=== PATIENT | female | born 1985 | race Caucasian/White ===

== ENCOUNTER 2017-11-19 14:42 | Emergency (ER) | payer OTHER ==
[2017-11-19 16:37] LABS: ADD UMIC YES; UR ASCORBIC ACID 40 mg/dL (NEGATIVE); UR BILIRUBIN (Dip) NEGATIVE (NEGATIVE); UR BLOOD (Dip) NEGATIVE (NEGATIVE); UR CLARITY SLIGHTLY CLOUDY (CLEAR); UR COLOR YELLOW (YELLOW); UR GLUCOSE (Dip) NEGATIVE (NEGATIVE); UR KETONES (Dip) NEGATIVE (NEGATIVE); UR LEUKOCYTE ESTERASE (Dip) TRACE Leu/ul (NEGATIVE); UR MUCUS FEW /HPF (NONE SEEN); UR NITRITE (Dip) NEGATIVE (NEGATIVE); UR RBC 2 /HPF (0-5); UR SPECIFIC GRAVITY (Dip) 1.026 (1.003-1.030); UR SQUAMOUS EPITHELIAL CELL MODERATE /HPF (FEW); UR TOTAL PROTEIN (Dip) NEGATIVE (NEGATIVE); UR UROBILINOGEN (Dip) NEGATIVE (NEGATIVE); UR WBC 2 /HPF (0-5)
== END 2017-11-19 17:30 | disposition home or self-care (01) ==
LOC: FTE 14:42
DX: O23.12 Infections of bladder in pregnancy, second trimester (principal); R10.2 Pelvic and perineal pain; Z3A.15 15 weeks gestation of pregnancy
CPT/HCPCS: 76805; 81001; 81025; 99284-25

== ENCOUNTER 2018-01-22 23:15 | Outpatient (CLI) | payer OTHER ==
[2018-01-23 01:01] LABS: ADD UMIC YES; UR ASCORBIC ACID NEGATIVE (NEGATIVE); UR BACTERIA FEW /HPF (NONE SEEN); UR BILIRUBIN (Dip) NEGATIVE (NEGATIVE); UR BLOOD (Dip) NEGATIVE (NEGATIVE); UR CLARITY SLIGHTLY CLOUDY (CLEAR); UR COLOR YELLOW (YELLOW); UR GLUCOSE (Dip) 1+ mg/dL (NEGATIVE); UR KETONES (Dip) 1+ mg/dL (NEGATIVE); UR LEUKOCYTE ESTERASE (Dip) NEGATIVE Leu/ul (NEGATIVE); UR MUCUS FEW /HPF (NONE SEEN); UR NITRITE (Dip) NEGATIVE (NEGATIVE); UR RBC 9 /HPF (0-5); UR SPECIFIC GRAVITY (Dip) 1.029 (1.003-1.030); UR SQUAMOUS EPITHELIAL CELL FEW /HPF (FEW); UR TOTAL PROTEIN (Dip) 1+ mg/dl (NEGATIVE); UR UROBILINOGEN (Dip) NEGATIVE (NEGATIVE); UR WBC 2 /HPF (0-5)
[2018-01-23 01:05] LABS: ADD MAN DIFF? NO
[2018-01-23 01:06] LABS: WHITE BLOOD COUNT 9.6 10^3/ul (4.8-10.8)
[2018-01-23 01:06] LABS: BASOPHILS % 0.2 % (0.0-2.0); EOSINOPHILS # 0.1 10^3/ul (0.0-0.5); EOSINOPHILS % 0.8 % (0.0-7.0); HEMATOCRIT 34.3 % (37.0-47.0); HEMOGLOBIN 11.8 g/dl (12.0-16.0); LYMPHOCYTES # 2.1 10^3/ul (0.8-2.9); LYMPHOCYTES % 21.6 % (15.0-51.0); MEAN CORPUSCULAR HEMOGLOBIN 33.8 pg (29.0-33.0); MEAN CORPUSCULAR HGB CONC 34.4 g/dl (32.0-37.0); MEAN CORPUSCULAR VOLUME 98.3 fl (82.0-101.0); MEAN PLATELET VOLUME 10.3 fl (7.4-10.4); MONOCYTE # 0.8 10^3/ul (0.3-0.9); MONOCYTES % 8.5 % (0.0-11.0); NEUTROPHIL # 6.4 10^3/ul (1.6-7.5); NEUTROPHILS % 66.7 % (39.0-77.0); PLATELET COUNT 210 10^3/UL (140-415); RED BLOOD COUNT 3.49 10^6/ul (4.20-5.40); RED CELL DISTRIBUTION WIDTH 14.3 % (11.5-14.5)
[2018-01-23 01:30] LABS: ALANINE AMINOTRANSFERASE 27 IU/L (13-69); ALBUMIN 3.2 g/dl (3.3-4.9); ALBUMIN/GLOBULIN RATIO 1.14; ALKALINE PHOSPHATASE 85 IU/L (42-121); ANION GAP 17 (8-16); ASPARTATE AMINO TRANSFERASE 20 IU/L (15-46); BILIRUBIN,INDIRECT 0.3 mg/dl (0-1.1); BILIRUBIN,TOTAL 0.3 mg/dl (0.2-1.3); BLOOD UREA NITROGEN 12 mg/dl (7-20); CARBON DIOXIDE 19 mmol/L (21-31); CHLORIDE 110 mmol/L (97-110); CREATININE 0.43 mg/dl (0.44-1.00); GLUCOSE 116 mg/dl (70-220); POTASSIUM 3.5 mmol/L (3.5-5.1); SODIUM 142 mmol/L (135-144)
== END 2018-01-23 03:40 | disposition home or self-care (01) ==
LOC: OBT 23:15 → L-D 23:20
DX: O26.892 Other specified pregnancy related conditions, second trimester (principal); R10.2 Pelvic and perineal pain; Z3A.26 26 weeks gestation of pregnancy
CPT/HCPCS: 76815; 76817; 80053; 81001; 85025; 87086

== ENCOUNTER 2018-04-01 22:37 | Outpatient (CLI) | payer OTHER ==
[2018-04-01 23:28] LABS: ADD UMIC YES; UR ASCORBIC ACID NEGATIVE (NEGATIVE); UR BILIRUBIN (Dip) NEGATIVE (NEGATIVE); UR BLOOD (Dip) NEGATIVE (NEGATIVE); UR CLARITY CLEAR (CLEAR); UR COLOR YELLOW (YELLOW); UR GLUCOSE (Dip) 2+ mg/dL (NEGATIVE); UR KETONES (Dip) TRACE mg/dL (NEGATIVE); UR LEUKOCYTE ESTERASE (Dip) TRACE Leu/ul (NEGATIVE); UR NITRITE (Dip) NEGATIVE (NEGATIVE); UR RBC 1 /HPF (0-5); UR SPECIFIC GRAVITY (Dip) 1.027 (1.003-1.030); UR SQUAMOUS EPITHELIAL CELL FEW /HPF (FEW); UR TOTAL PROTEIN (Dip) NEGATIVE (NEGATIVE); UR UROBILINOGEN (Dip) NEGATIVE (NEGATIVE); UR WBC 4 /HPF (0-5)
== END 2018-04-02 02:08 | disposition home or self-care (01) ==
LOC: OBT 22:37 → L-D 22:38
DX: O62.9 Abnormality of forces of labor, unspecified (principal); O24.414 Gestational diabetes mellitus in pregnancy, insulin controlled; Z3A.36 36 weeks gestation of pregnancy
CPT/HCPCS: 76815; 76818; 81001

== ENCOUNTER 2018-04-10 21:13 | Inpatient (IN) | payer OTHER ==
[2018-04-11 00:41] LABS: ADD UMIC YES; UR ASCORBIC ACID NEGATIVE (NEGATIVE); UR BACTERIA FEW /HPF (NONE SEEN); UR BILIRUBIN (Dip) NEGATIVE (NEGATIVE); UR BLOOD (Dip) NEGATIVE (NEGATIVE); UR CLARITY CLOUDY (CLEAR); UR COLOR YELLOW (YELLOW); UR GLUCOSE (Dip) 1+ mg/dL (NEGATIVE); UR KETONES (Dip) TRACE mg/dL (NEGATIVE); UR LEUKOCYTE ESTERASE (Dip) TRACE Leu/ul (NEGATIVE); UR MUCUS FEW /HPF (NONE SEEN); UR NITRITE (Dip) NEGATIVE (NEGATIVE); UR RBC 2 /HPF (0-5); UR SPECIFIC GRAVITY (Dip) 1.026 (1.003-1.030); UR SQUAMOUS EPITHELIAL CELL MODERATE /HPF (FEW); UR TOTAL PROTEIN (Dip) 1+ mg/dl (NEGATIVE); UR UROBILINOGEN (Dip) NEGATIVE (NEGATIVE); UR WBC 5 /HPF (0-5)
[2018-04-11] MEDS ORDERED: OXYTOCIN 30 UNITS/LR 500 ML IV ×3 (03:30→20:30)
[2018-04-11] MEDS ORDERED: DEXTROSE 50% 50 ML SYRINGE IV ×2 (03:30)
[2018-04-11] MEDS ORDERED: LIDOCAINE 1% (MPF) 30 ML INJ INJ (03:30)
[2018-04-11] MEDS ORDERED: HYDROCODONE/APAP (5/325) TAB PO (03:30)
[2018-04-11] MEDS ORDERED: MISOPROSTOL 200 MCG TAB PR ×2 (03:30→20:30)
[2018-04-11] MEDS ORDERED: GLUCOSE GEL 15 GRAM TUBE PO ×2 (03:30)
[2018-04-11] MEDS ORDERED: CARBOPROST 250 MCG INJ IM ×2 (03:30→20:30)
[2018-04-11] MEDS ORDERED: METHYLERGONOVINE 0.2 MG INJ IM ×2 (03:30→20:30)
[2018-04-11] MEDS ORDERED: IBUPROFEN 600 MG TAB PO (03:30)
[2018-04-11] MEDS ORDERED: GLUCOSE GEL 15 GRAM TUBE BUCCAL (03:30)
[2018-04-11] MEDS ORDERED: GLUCAGON 1 MG INJ IM (03:30)
[2018-04-11] MEDS: INSULIN ASPART [NOVOLOG] 3 ML PEN SC (03:43)
[2018-04-11] MEDS: ACCU-CHEK XX (03:43)
[2018-04-11] MEDS: LACTATED RINGER'S 1,000 ML IV* ×4 (03:44→19:33)
[2018-04-11] MEDS: AMPICILLIN 2 GM/NS (PMX) 100 ML IV (04:02)
[2018-04-11 04:42] LABS: ADD MAN DIFF? NO; BASOPHILS % 0.2 % (0.0-2.0); EOSINOPHILS # 0.1 10^3/ul (0.0-0.5); EOSINOPHILS % 0.6 % (0.0-7.0); HEMATOCRIT 36.3 % (37.0-47.0); HEMOGLOBIN 12.6 g/dl (12.0-16.0); LYMPHOCYTES # 2.8 10^3/ul (0.8-2.9); LYMPHOCYTES % 31.7 % (15.0-51.0); MEAN CORPUSCULAR HEMOGLOBIN 33.9 pg (29.0-33.0); MEAN CORPUSCULAR HGB CONC 34.7 g/dl (32.0-37.0); MEAN CORPUSCULAR VOLUME 97.6 fl (82.0-101.0); MEAN PLATELET VOLUME 12.4 fl (7.4-10.4); MONOCYTE # 0.8 10^3/ul (0.3-0.9); MONOCYTES % 8.4 % (0.0-11.0); NEUTROPHIL # 5.2 10^3/ul (1.6-7.5); NEUTROPHILS % 58.5 % (39.0-77.0); PLATELET COUNT 172 10^3/UL (140-415); RED BLOOD COUNT 3.72 10^6/ul (4.20-5.40); RED CELL DISTRIBUTION WIDTH 13.5 % (11.5-14.5)
[2018-04-11 04:42] LABS: WHITE BLOOD COUNT 8.9 10^3/ul (4.8-10.8)
[2018-04-11 04:58] LABS: GLUCOSE 127 mg/dl (70-220)
[2018-04-11 05:01] LABS: INR 0.96; PROTIME 12.9 Sec (11.9-14.9)
[2018-04-11 05:02] LABS: PARTIAL THROMBOPLASTIN TIME 28.1 Sec (25.0-35.0)
[2018-04-11 05:29] LABS: HEPATITIS B SURFACE ANTIGEN NEGATIVE (NEGATIVE)
[2018-04-11] MEDS ORDERED: AMPICILLIN 1 GM/NS (PMX) 50 ML IV (07:30)
[2018-04-11] MEDS: LACTATED RINGER'S 1,000 ML IV (07:56)
[2018-04-11] MEDS: BUTORPHANOL 2 MG INJ IV (08:08)
[2018-04-11] MEDS ORDERED: INSULIN ASPART [NOVOLOG] 3 ML PEN SC (09:00)
[2018-04-11] MEDS ORDERED: ACCU-CHEK XX (09:00)
[2018-04-11] MEDS: OXYTOCIN 30 UNITS/LR 500 ML IV ×3 (09:46→20:45)
[2018-04-11] MEDS ORDERED: FENTAnyl 2MCG/ML-ROPIV 0.2% 100 ML (12:07)
[2018-04-11] MEDS: ACETAMINOPHEN 500 MG TAB PO ×3 (12:58→21:48)
[2018-04-11] MEDS: ONDANSETRON 4 MG INJ IV ×3 (13:43→21:48)
[2018-04-11 17:17] LABS: RAPID PLASMA REAGIN NONREACTIVE (NR)
[2018-04-11] MEDS: DEXTROSE 5%-LR 1,000 ML IV (19:31)
[2018-04-11] MEDS: FENTAnyl 2MCG/ML-ROPIV 0.2% 100 ML BAG EPI (19:55)
[2018-04-11] MEDS ORDERED: NALOXONE (0.4 MG/ML) INJ IV (20:00)
[2018-04-11] MEDS ORDERED: SENNA/DOCUSATE NA (8.6MG/50MG) TAB PO (20:30)
[2018-04-11] MEDS ORDERED: NACL 0.9% 3 ML SYG IV (20:30)
[2018-04-11] MEDS ORDERED: DIBUCAINE 1% 30 GM OINT PR (20:30)
[2018-04-11] MEDS ORDERED: ONDANSETRON 4 MG INJ IV (20:30)
[2018-04-11] MEDS ORDERED: OXYCODONE/ASPIRIN (4.88/325) TAB PO (20:30)
[2018-04-11] MEDS ORDERED: DIPHENHYDRAMINE 25 MG CAP PO (20:30)
[2018-04-11] MEDS: SENNA/DOCUSATE NA (8.6MG/50MG) TAB PO (21:00)
[2018-04-11] MEDS: ACETAMINOPHEN 325 MG TAB PO (21:00)
[2018-04-12] MEDS: OXYTOCIN 30 UNITS/LR 500 ML IV (00:44)
[2018-04-12] MEDS: IBUPROFEN 600 MG TAB PO ×5 (00:51→23:55)
[2018-04-12 07:01] LABS: ADD MAN DIFF? NO
[2018-04-12 07:03] LABS: WHITE BLOOD COUNT 12.6 10^3/ul (4.8-10.8)
[2018-04-12 07:03] LABS: BASOPHILS % 0.1 % (0.0-2.0); EOSINOPHILS % 0.2 % (0.0-7.0); HEMATOCRIT 31.6 % (37.0-47.0); LYMPHOCYTES # 2.3 10^3/ul (0.8-2.9); LYMPHOCYTES % 17.8 % (15.0-51.0); MEAN CORPUSCULAR HGB CONC 34.8 g/dl (32.0-37.0); MEAN CORPUSCULAR VOLUME 97.5 fl (82.0-101.0); MONOCYTE # 0.9 10^3/ul (0.3-0.9); NEUTROPHIL # 9.4 10^3/ul (1.6-7.5); NEUTROPHILS % 74.5 % (39.0-77.0); PLATELET COUNT 135 10^3/UL (140-415); RED BLOOD COUNT 3.24 10^6/ul (4.20-5.40); RED CELL DISTRIBUTION WIDTH 13.2 % (11.5-14.5)
[2018-04-12] MEDS: ACCU-CHEK XX ×4 (07:30→20:58)
[2018-04-12] MEDS: SENNA/DOCUSATE NA (8.6MG/50MG) TAB PO ×2 (10:00→20:58)
[2018-04-12] MEDS: OXYCODONE/ASPIRIN (4.88/325) TAB PO (10:04)
[2018-04-12] MEDS: LANOLIN 7 GM TUBE TOP (10:05)
[2018-04-12] MEDS: WITCH HAZEL/GLYCERIN PAD PR (10:05)
[2018-04-12] MEDS: BENZOCAINE 20% 56 ML SPRAY TOP (10:05)
[2018-04-13] MEDS: IBUPROFEN 600 MG TAB PO ×3 (05:46→17:38)
[2018-04-13] MEDS: SENNA/DOCUSATE NA (8.6MG/50MG) TAB PO (08:14)
[2018-04-13] MEDS: OXYCODONE/ASPIRIN (4.88/325) TAB PO ×2 (08:14→17:38)
== END 2018-04-13 18:50 | disposition home or self-care (01) | DRG 775 ==
LOC: OBT 21:13 → L-D 21:15 → PP1 04-11 23:37
PROC: 10E0XZZ Delivery of Products of Conception, External Approach (ICD-10-PCS; principal; 2018-04-11)
PROC: 3E033VJ Introduction of Other Hormone into Peripheral Vein, Percutaneous Approach (ICD-10-PCS; 2018-04-11)
DX: O24.429 Gestational diabetes mellitus in childbirth, unspecified control (principal); O69.81X0 Labor and delivery complicated by cord around neck, without compression, not applicable or unspecified; Z3A.37 37 weeks gestation of pregnancy; Z37.0 Single live birth
CPT/HCPCS: 62319; 76818; 81001; 82947; 82962; 85025; 85610; 85730; 86592; 86850; 86900; 86901; 87340; 99464

== ENCOUNTER 2018-08-19 22:35 | Emergency (ER) | payer BC, OTHER ==
[2018-08-20] MEDS: ACETAMINOPHEN 325 MG TAB PO (00:42)
[2018-08-20 00:53] LABS: ADD MAN DIFF? NO
[2018-08-20 00:57] LABS: WHITE BLOOD COUNT 9.9 10^3/ul (4.8-10.8)
[2018-08-20 00:57] LABS: BASOPHILS % 0.1 % (0.0-2.0); EOSINOPHILS # 0.1 10^3/ul (0.0-0.5); EOSINOPHILS % 0.7 % (0.0-7.0); HEMATOCRIT 34.4 % (37.0-47.0); HEMOGLOBIN 12.1 g/dl (12.0-16.0); LYMPHOCYTES % 30.5 % (15.0-51.0); MEAN CORPUSCULAR HEMOGLOBIN 32.9 pg (29.0-33.0); MEAN CORPUSCULAR HGB CONC 35.2 g/dl (32.0-37.0); MEAN CORPUSCULAR VOLUME 93.5 fl (82.0-101.0); MEAN PLATELET VOLUME 10.5 fl (7.4-10.4); MONOCYTE # 0.7 10^3/ul (0.3-0.9); MONOCYTES % 7.4 % (0.0-11.0); NEUTROPHILS % 60.9 % (39.0-77.0); PLATELET COUNT 291 10^3/UL (140-415); RED BLOOD COUNT 3.68 10^6/ul (4.20-5.40); RED CELL DISTRIBUTION WIDTH 12.8 % (11.5-14.5)
[2018-08-20 01:08] LABS: ADD UMIC YES; UR ASCORBIC ACID NEGATIVE (NEGATIVE); UR BILIRUBIN (Dip) NEGATIVE (NEGATIVE); UR BLOOD (Dip) 1+ mg/dL (NEGATIVE); UR CLARITY CLEAR (CLEAR); UR COLOR YELLOW (YELLOW); UR GLUCOSE (Dip) NEGATIVE (NEGATIVE); UR KETONES (Dip) TRACE mg/dL (NEGATIVE); UR LEUKOCYTE ESTERASE (Dip) NEGATIVE Leu/ul (NEGATIVE); UR NITRITE (Dip) NEGATIVE (NEGATIVE); UR RBC 0 /HPF (0-5); UR SPECIFIC GRAVITY (Dip) 1.023 (1.003-1.030); UR SQUAMOUS EPITHELIAL CELL FEW /HPF (FEW); UR TOTAL PROTEIN (Dip) NEGATIVE (NEGATIVE); UR UROBILINOGEN (Dip) NEGATIVE (NEGATIVE); UR WBC 1 /HPF (0-5)
[2018-08-20 01:22] LABS: ALANINE AMINOTRANSFERASE 27 IU/L (13-69); ALBUMIN 4.2 g/dl (3.3-4.9); ALBUMIN/GLOBULIN RATIO 1.82; ALKALINE PHOSPHATASE 79 IU/L (42-121); ANION GAP 14 (5-13); ASPARTATE AMINO TRANSFERASE 22 IU/L (15-46); BILIRUBIN,INDIRECT 0.1 mg/dl (0-1.1); BILIRUBIN,TOTAL 0.1 mg/dl (0.2-1.3); BLOOD UREA NITROGEN 19 mg/dl (7-20); CARBON DIOXIDE 23 mmol/L (21-31); CHLORIDE 102 mmol/L (97-110); CREATININE 0.48 mg/dl (0.44-1.00); Estimated GFR > 60 mL/min (>60); GLUCOSE 122 mg/dl (70-220); POTASSIUM 4.1 mmol/L (3.5-5.1); SODIUM 139 mmol/L (135-144); TOTAL PROTEIN 6.5 g/dl (6.1-8.1)
== END 2018-08-20 02:56 | disposition home or self-care (01) ==
LOC: FTE 22:35
DX: O26.891 Other specified pregnancy related conditions, first trimester (principal); R10.2 Pelvic and perineal pain; Z3A.01 Less than 8 weeks gestation of pregnancy
CPT/HCPCS: 36415; 76801; 80053; 81001; 84702; 85025; 99284-25

== ENCOUNTER 2018-08-28 10:23 | Emergency (ER) | payer BC ==
[2018-08-28] MEDS: DIPHENHYDRAMINE 50 MG INJ IV (11:06)
[2018-08-28] MEDS: METOCLOPRAMIDE 10 MG INJ IV (11:06)
[2018-08-28] MEDS: SOD CHLORIDE 0.9% 1,000 ML IV (11:07)
[2018-08-28 11:19] LABS: ADD MAN DIFF? NO
[2018-08-28 11:25] LABS: BASOPHILS % 0.2 % (0.0-2.0); EOSINOPHILS % 0.2 % (0.0-7.0); HEMATOCRIT 35.7 % (37.0-47.0); HEMOGLOBIN 12.7 g/dl (12.0-16.0); LYMPHOCYTES # 1.8 10^3/ul (0.8-2.9); LYMPHOCYTES % 15.7 % (15.0-51.0); MEAN CORPUSCULAR HEMOGLOBIN 32.9 pg (29.0-33.0); MEAN CORPUSCULAR HGB CONC 35.6 g/dl (32.0-37.0); MEAN CORPUSCULAR VOLUME 92.5 fl (82.0-101.0); MEAN PLATELET VOLUME 10.5 fl (7.4-10.4); MONOCYTE # 0.7 10^3/ul (0.3-0.9); MONOCYTES % 6.1 % (0.0-11.0); NEUTROPHIL # 8.8 10^3/ul (1.6-7.5); NEUTROPHILS % 77.3 % (39.0-77.0); PLATELET COUNT 278 10^3/UL (140-415); RED BLOOD COUNT 3.86 10^6/ul (4.20-5.40); RED CELL DISTRIBUTION WIDTH 12.3 % (11.5-14.5)
[2018-08-28 11:25] LABS: WHITE BLOOD COUNT 11.4 10^3/ul (4.8-10.8)
[2018-08-28 11:45] LABS: ALANINE AMINOTRANSFERASE 15 IU/L (13-69); ALBUMIN 4.2 g/dl (3.3-4.9); ALBUMIN/GLOBULIN RATIO 1.35; ALKALINE PHOSPHATASE 72 IU/L (42-121); ANION GAP 17 (5-13); ASPARTATE AMINO TRANSFERASE 19 IU/L (15-46); BILIRUBIN,INDIRECT 0.2 mg/dl (0-1.1); BILIRUBIN,TOTAL 0.2 mg/dl (0.2-1.3); BLOOD UREA NITROGEN 13 mg/dl (7-20); CALCIUM 9.3 mg/dl (8.4-10.2); CARBON DIOXIDE 20 mmol/L (21-31); CHLORIDE 102 mmol/L (97-110); CREATININE 0.41 mg/dl (0.44-1.00); Estimated GFR > 60 mL/min (>60); GLUCOSE 100 mg/dl (70-220); LIPASE 79 U/L (23-300); POTASSIUM 3.8 mmol/L (3.5-5.1); SODIUM 139 mmol/L (135-144); TOTAL PROTEIN 7.3 g/dl (6.1-8.1)
[2018-08-28 11:48] LABS: ADD UMIC NO; UR ASCORBIC ACID NEGATIVE (NEGATIVE); UR BACTERIA FEW /HPF (NONE SEEN); UR BILIRUBIN (Dip) NEGATIVE (NEGATIVE); UR BLOOD (Dip) NEGATIVE (NEGATIVE); UR CLARITY SLIGHTLY CLOUDY (CLEAR); UR COLOR YELLOW (YELLOW); UR GLUCOSE (Dip) NEGATIVE (NEGATIVE); UR KETONES (Dip) NEGATIVE (NEGATIVE); UR LEUKOCYTE ESTERASE (Dip) NEGATIVE Leu/ul (NEGATIVE); UR MUCUS FEW /HPF (NONE SEEN); UR NITRITE (Dip) NEGATIVE (NEGATIVE); UR RBC 1 /HPF (0-5); UR SPECIFIC GRAVITY (Dip) 1.019 (1.003-1.030); UR SQUAMOUS EPITHELIAL CELL MODERATE /HPF (FEW); UR TOTAL PROTEIN (Dip) NEGATIVE (NEGATIVE); UR UROBILINOGEN (Dip) NEGATIVE (NEGATIVE); UR WBC 2 /HPF (0-5)
== END 2018-08-28 15:35 | disposition home or self-care (01) ==
LOC: FTE 10:23
DX: O21.9 Vomiting of pregnancy, unspecified (principal); R10.2 Pelvic and perineal pain; Z3A.12 12 weeks gestation of pregnancy
CPT/HCPCS: 36415; 76801; 80053; 81001; 81003; 83690; 84702; 85025; 86900; 86901; 96361; 96374; 96375; 99285-25

== ENCOUNTER 2019-02-17 20:51 | Inpatient (IN) | payer BC ==
[2019-02-17] MEDS ORDERED: LIDOCAINE 1% (MPF) 30 ML INJ INJ (22:30)
[2019-02-17] MEDS ORDERED: IBUPROFEN 600 MG TAB PO (22:30)
[2019-02-17] MEDS ORDERED: CARBOPROST 250 MCG INJ IM (22:30)
[2019-02-17] MEDS ORDERED: MISOPROSTOL 200 MCG TAB PR (22:30)
[2019-02-17] MEDS ORDERED: OXYTOCIN 30 UNITS/LR 500 ML IV (22:30)
[2019-02-17] MEDS ORDERED: METHYLERGONOVINE 0.2 MG INJ IM (22:30)
[2019-02-17] MEDS ORDERED: BUTORPHANOL 2 MG INJ IV (22:30)
[2019-02-17 23:59] LABS: ADD MAN DIFF? NO
[2019-02-18 00:01] LABS: WHITE BLOOD COUNT 6.7 10^3/ul (4.8-10.8)
[2019-02-18 00:01] LABS: BASOPHILS % 0.1 % (0.0-2.0); EOSINOPHILS # 0.1 10^3/ul (0.0-0.5); EOSINOPHILS % 0.7 % (0.0-7.0); HEMATOCRIT 33.3 % (37.0-47.0); HEMOGLOBIN 11.4 g/dl (12.0-16.0); LYMPHOCYTES # 1.6 10^3/ul (0.8-2.9); LYMPHOCYTES % 23.4 % (15.0-51.0); MEAN CORPUSCULAR HEMOGLOBIN 32.8 pg (29.0-33.0); MEAN CORPUSCULAR HGB CONC 34.2 g/dl (32.0-37.0); MEAN CORPUSCULAR VOLUME 95.7 fl (82.0-101.0); MEAN PLATELET VOLUME 11.3 fl (7.4-10.4); MONOCYTE # 0.5 10^3/ul (0.3-0.9); MONOCYTES % 7.7 % (0.0-11.0); NEUTROPHIL # 4.6 10^3/ul (1.6-7.5); NEUTROPHILS % 67.8 % (39.0-77.0); PLATELET COUNT 173 10^3/UL (140-415); RED BLOOD COUNT 3.48 10^6/ul (4.20-5.40)
[2019-02-18] MEDS: AMPICILLIN 2 GM/NS (PMX) 100 ML IVPB (00:05)
[2019-02-18] MEDS: BUTORPHANOL 2 MG INJ IV (00:09)
[2019-02-18] MEDS ORDERED: LACTATED RINGER'S 1,000 ML IV (00:20)
[2019-02-18] MEDS: LACTATED RINGER'S 1,000 ML IV ×4 (00:20→22:36)
[2019-02-18 00:29] LABS: INR 0.99; PROTIME 13.2 Sec (11.9-14.9)
[2019-02-18 00:30] LABS: PARTIAL THROMBOPLASTIN TIME 26.3 Sec (23.0-35.0)
[2019-02-18 00:42] LABS: GLUCOSE 156 mg/dl (70-220)
[2019-02-18 00:57] LABS: HEPATITIS B SURFACE ANTIGEN NEGATIVE (NEGATIVE)
[2019-02-18 01:14] LABS: AMPHETAMINE/METHAMPHETAMINE Negative (NEGATIVE); BARBITURATES Negative (NEGATIVE); BENZODIAZEPINES Negative (NEGATIVE); CANNABINOIDS Negative (NEGATIVE); COCAINE Negative (NEGATIVE); OPIATES Negative (NEGATIVE)
[2019-02-18] MEDS: AMPICILLIN 1 GM/NS (PMX) 50 ML IVPB ×6 (04:14→21:00)
[2019-02-18] MEDS ORDERED: GLUCOSE GEL 15 GRAM TUBE BUCCAL (14:00)
[2019-02-18] MEDS ORDERED: DEXTROSE 50% 50 ML SYRINGE IV ×2 (14:00)
[2019-02-18] MEDS ORDERED: METHYLERGONOVINE 0.2 MG INJ IM (14:00)
[2019-02-18] MEDS ORDERED: OXYTOCIN 30 UNITS/LR 500 ML IV ×3 (14:00)
[2019-02-18] MEDS ORDERED: MISOPROSTOL 200 MCG TAB PR (14:00)
[2019-02-18] MEDS ORDERED: GLUCAGON 1 MG INJ IM (14:00)
[2019-02-18] MEDS ORDERED: CARBOPROST 250 MCG INJ IM (14:00)
[2019-02-18] MEDS ORDERED: GLUCOSE GEL 15 GRAM TUBE PO ×2 (14:00)
[2019-02-18] MEDS ORDERED: LIDOCAINE 1% (MPF) 30 ML INJ INJ (14:00)
[2019-02-18] MEDS: INSULIN ASPART [NOVOLOG] 3 ML PEN SC (17:58)
[2019-02-18 20:12] LABS: RAPID PLASMA REAGIN NONREACTIVE (NR)
[2019-02-18] MEDS: NPH, HUMAN INSULIN ISOPHANE 3ML VIAL SC (21:50)
[2019-02-19] MEDS: AMPICILLIN 1 GM/NS (PMX) 50 ML IVPB ×3 (00:10→10:36)
[2019-02-19] MEDS: LACTATED RINGER'S 1,000 ML IV (06:26)
[2019-02-19] MEDS: NPH, HUMAN INSULIN ISOPHANE 3ML VIAL SC (09:09)
[2019-02-19] MEDS: INSULIN ASPART [NOVOLOG] 3 ML PEN SC (09:11)
== END 2019-02-19 13:24 | disposition home or self-care (01) | DRG 833 ==
LOC: OBT 20:51 → L-D 20:52 → OBT 22:00 → L-D 22:00
PROVIDERS: Obstetrics & Gynecology
DX: O60.03 Preterm labor without delivery, third trimester (principal); O24.419 Gestational diabetes mellitus in pregnancy, unspecified control; Z3A.35 35 weeks gestation of pregnancy
CPT/HCPCS: 76815; 76818; 80307; 82947; 82962; 85025; 85610; 85730; 86592; 86900; 86901; 87340

== ENCOUNTER 2019-02-19 17:49 | Inpatient (IN) | payer BC ==
[2019-02-19] MEDS ORDERED: LIDOCAINE 1% (MPF) 30 ML INJ INJ (19:00)
[2019-02-19] MEDS ORDERED: CARBOPROST 250 MCG INJ IM ×2 (19:00→22:00)
[2019-02-19] MEDS ORDERED: BUTORPHANOL 2 MG INJ IV (19:00)
[2019-02-19] MEDS ORDERED: OXYTOCIN 30 UNITS/LR 500 ML IV ×2 (19:00→22:00)
[2019-02-19] MEDS ORDERED: MISOPROSTOL 200 MCG TAB PR ×2 (19:00→22:00)
[2019-02-19] MEDS ORDERED: IBUPROFEN 600 MG TAB PO (19:00)
[2019-02-19] MEDS ORDERED: METHYLERGONOVINE 0.2 MG INJ IM ×2 (19:00→22:00)
[2019-02-19 19:07] LABS: ADD MAN DIFF? NO
[2019-02-19] MEDS ORDERED: FENTAnyl 2MCG/ML-ROPIV 0.2% 100 ML (19:07)
[2019-02-19 19:10] LABS: BASOPHILS % 0.2 % (0.0-2.0); EOSINOPHILS % 0.3 % (0.0-7.0); HEMATOCRIT 36.3 % (37.0-47.0); HEMOGLOBIN 12.4 g/dl (12.0-16.0); LYMPHOCYTES # 2.2 10^3/ul (0.8-2.9); LYMPHOCYTES % 24.3 % (15.0-51.0); MEAN CORPUSCULAR HEMOGLOBIN 32.5 pg (29.0-33.0); MEAN CORPUSCULAR HGB CONC 34.2 g/dl (32.0-37.0); MEAN PLATELET VOLUME 11.5 fl (7.4-10.4); MONOCYTE # 0.7 10^3/ul (0.3-0.9); MONOCYTES % 7.7 % (0.0-11.0); NEUTROPHIL # 5.9 10^3/ul (1.6-7.5); PLATELET COUNT 182 10^3/UL (140-415); RED BLOOD COUNT 3.82 10^6/ul (4.20-5.40); RED CELL DISTRIBUTION WIDTH 13.8 % (11.5-14.5)
[2019-02-19 19:10] LABS: WHITE BLOOD COUNT 8.9 10^3/ul (4.8-10.8)
[2019-02-19] MEDS: LACTATED RINGER'S 1,000 ML IV (19:11)
[2019-02-19] MEDS: AMPICILLIN 2 GM/NS (PMX) 100 ML IV (19:22)
[2019-02-19 19:30] LABS: INR 0.91; PROTIME 12.4 Sec (11.9-14.9)
[2019-02-19 19:31] LABS: PARTIAL THROMBOPLASTIN TIME 26.8 Sec (23.0-35.0)
[2019-02-19] MEDS: OXYTOCIN 30 UNITS/LR 500 ML IV ×3 (19:51→23:42)
[2019-02-19 20:18] LABS: AMPHETAMINE/METHAMPHETAMINE Negative (NEGATIVE); BARBITURATES Negative (NEGATIVE); BENZODIAZEPINES Negative (NEGATIVE); CANNABINOIDS Negative (NEGATIVE); COCAINE Negative (NEGATIVE); OPIATES Negative (NEGATIVE)
[2019-02-19] MEDS ORDERED: DIPHENHYDRAMINE 50 MG INJ IV (20:30)
[2019-02-19] MEDS ORDERED: FENTAnyl 2MCG/ML-ROPIV 0.2% 100 ML BAG EPI (20:30)
[2019-02-19] MEDS ORDERED: NALOXONE (0.4 MG/ML) INJ IV (20:30)
[2019-02-19] MEDS ORDERED: EPHEDrine 25 MG/5 ML SYG IV (20:30)
[2019-02-19] MEDS ORDERED: ONDANSETRON 4 MG INJ IV (20:30)
[2019-02-19 21:55] LABS: HEPATITIS B SURFACE ANTIGEN NEGATIVE (NEGATIVE)
[2019-02-19] MEDS ORDERED: NACL 0.9% 3 ML SYG IV (22:00)
[2019-02-19] MEDS ORDERED: AMPICILLIN 1 GM/NS (PMX) 50 ML IV (23:00)
[2019-02-19] MEDS: BUPIVACAINE 0.25% (MPF) 30 ML INJ INJ (23:30)
[2019-02-19] MEDS: IBUPROFEN 600 MG TAB PO (23:38)
[2019-02-20] MEDS: OXYCODONE/ACETAMINOPHEN (5/325) TAB PO (00:55)
[2019-02-20] MEDS: IBUPROFEN 600 MG TAB PO ×3 (05:45→17:33)
[2019-02-20] MEDS: ACCU-CHEK XX ×4 (07:30→13:50)
[2019-02-20 08:15] LABS: ADD MAN DIFF? NO
[2019-02-20 08:18] LABS: BASOPHILS % 0.3 % (0.0-2.0); EOSINOPHILS # 0.1 10^3/ul (0.0-0.5); EOSINOPHILS % 0.5 % (0.0-7.0); HEMATOCRIT 33.2 % (37.0-47.0); HEMOGLOBIN 11.6 g/dl (12.0-16.0); LYMPHOCYTES # 2.1 10^3/ul (0.8-2.9); MEAN CORPUSCULAR HEMOGLOBIN 32.5 pg (29.0-33.0); MEAN CORPUSCULAR HGB CONC 34.9 g/dl (32.0-37.0); MEAN PLATELET VOLUME 11.8 fl (7.4-10.4); MONOCYTE # 0.9 10^3/ul (0.3-0.9); MONOCYTES % 8.1 % (0.0-11.0); NEUTROPHIL # 7.9 10^3/ul (1.6-7.5); NEUTROPHILS % 71.7 % (39.0-77.0); PLATELET COUNT 162 10^3/UL (140-415); RED BLOOD COUNT 3.57 10^6/ul (4.20-5.40); RED CELL DISTRIBUTION WIDTH 13.5 % (11.5-14.5)
[2019-02-20 08:18] LABS: WHITE BLOOD COUNT 11.1 10^3/ul (4.8-10.8)
[2019-02-20 15:47] LABS: RAPID PLASMA REAGIN NONREACTIVE (NR)
== END 2019-02-20 19:01 | disposition home or self-care (01) | DRG 807 ==
LOC: OBT 17:49 → L-D 17:49 → OBT 18:15 → L-D 18:15 → PP1 21:29
PROVIDERS: Obstetrics & Gynecology
PROC: 10E0XZZ Delivery of Products of Conception, External Approach (ICD-10-PCS; principal; 2019-02-19)
DX: O24.429 Gestational diabetes mellitus in childbirth, unspecified control (principal); Z37.0 Single live birth; Z3A.36 36 weeks gestation of pregnancy
CPT/HCPCS: 62322; 80307; 82962; 85025; 85610; 85730; 86592; 86850; 86900; 86901; 87340; 99464